=== PATIENT | female | born 1985 | race Caucasian/White ===

== ENCOUNTER 2019-01-07 14:44 | Emergency (ER) | payer SELFPAY ==
[~2019-01-07] VITALS: Ht 162.6 cm; Wt 75.0 kg
[2019-01-07 14:49] VITALS: BP 135/91
[2019-01-07] MEDS ORDERED: EFFEXOR 75M75 MG/TAB PO ×2 (15:02→15:38)
[2019-01-07 15:28] VITALS: PULSE 74; TEMP 98.1
[2019-01-07 15:35] LABS: ALBUMIN 4.5 gm/dL (3.5-5.0); BILIRUBIN UNCONJUGATED 0.3 mg/dL (0.0-1.1); BILIRUBIN,DIRECT 0.1 mg/dL (0.0-0.4); BILIRUBIN,TOTAL 0.4 mg/dL (0.0-1.0); TOTAL PROTEIN 8.5 gm/dL (6.4-8.2)
== END 2019-01-07 15:27 | disposition home or self-care (01) ==
LOC: COL.ER 14:44
PROVIDERS: Physician Assistant
DX: Z76.0 Encounter for issue of repeat prescription (principal); F32.9 Major depressive disorder, single episode, unspecified; F43.10 Post-traumatic stress disorder, unspecified; F41.9 Anxiety disorder, unspecified; F12.90 Cannabis use, unspecified, uncomplicated; F17.210 Nicotine dependence, cigarettes, uncomplicated; Z86.39 Personal history of other endocrine, nutritional and metabolic disease

== ENCOUNTER 2023-01-15 16:29 | Emergency (ER) | payer OTHER ==
[~2023-01-15] VITALS: Ht 162.6 cm; Wt 65.9 kg
[~2023-01-15 16:29] MED LIST: EFFEXOR 75M75 MG/TAB PO
[2023-01-15 16:42] VITALS: TEMP 98.2
[2023-01-15 17:42] LABS: COLLECTION METHOD CLEAN CATCH
[2023-01-15 17:45] LABS: SQUAMOUS EPITHELIAL 0-2 /hpf (0-10); URINE APPEARANCE Clear (CLEAR/HAZY); URINE BACTERIA None Seen /hpf (NONE SEEN); URINE BLOOD Negative (NEGATIVE); URINE COLOR Yellow (YELLOW); URINE GLUCOSE Negative (NEGATIVE); URINE KETONE Negative (NEGATIVE); URINE NITRATE Negative (NEGATIVE); URINE PROTEIN(semi-quant) Negative (NEGATIVE); URINE RBC 0-2 /hpf (0-2); URINE UROBILINOGEN 0.2 E.U/dL (0.2-1.0)
[2023-01-15 18:12] LABS: TRICYCLIC ANTIDEPRESS URINE NEGATIVE
[2023-01-15 18:14] LABS: BASO % 0.5 % (0.0-2.0); EOS # 0.1 K/mm3 (0.0-0.7); EOS % 0.9 % (0.0-4.0); GRAN # 5.1 K/mm3 (1.4-6.5); GRAN % 58.5 % (42.2-75.2); HEMATOCRIT 39.8 % (37.0-47.0); HEMOGLOBIN 14.5 g/dl (12.5-16.0); LYMPH # 2.8 K/mm3 (1.2-3.4); LYMPH % 32.3 % (20.0-51.0); MEAN CELL VOLUME 92 fl (80.0-100.0); MEAN CORPUSCULAR HEMOGLOBIN 33 pg (27-31); MEAN CORPUSCULAR HGB CONC 36 g/dl (33.0-37.0); MEAN PLATELET VOLUME 10.1 fl (7.4-10.4); MONO # 0.7 K/mm3 (0.1-0.6); MONO % 7.7 % (1.7-9.3); PLATELET COUNT 191 K/mm3 (130-400); RED BLOOD COUNT 4.34 M/mm3 (4.10-5.30); REDCELL DISTRIBUTION WIDTH-CV 12.2 % (11.5-14.5)
[2023-01-15 18:34] LABS: ALANINE AMINOTRANSFERASE 22 U/L (0-55); ALCOHOL(ethanol),MEDICAL 115 mg/dL (0-10); ALKALINE PHOSPHATASE 77 U/L (40-150); ANION GAP 12 mmol/L (7-16); AST,SGOT 29 U/L (5-34); BILIRUBIN,TOTAL 0.4 mg/dL (0.2-1.2); BLOOD UREA NITROGEN 3 mg/dL (7-19); CALCIUM 9.8 mg/dL (8.4-10.2); CARBON DIOXIDE 23 mmol/L (22-29); CHLORIDE 103 mmol/L (98-107); CREATININE, serum 0.71 mg/dL (0.57-1.11); GLUCOSE 85 mg/dL (70-99); POTASSIUM 3.7 mmol/L (3.5-4.5); SODIUM 138 mmol/L (136-145); TOTAL PROTEIN 7.6 gm/dL (6.2-8.1)
[2023-01-15 18:41] LABS: ACETAMINOPHEN < 1.0 ug/mL (10-30); SALICYLATE < 5.0 mg/dL (15.0-30.0)
[2023-01-15 19:39] VITALS: BP 99/56; PULSE 87
[2023-01-17] MEDS ORDERED: PHENERGAN 25 TA25 MG PO (21:00)
[2023-01-17] MEDS ORDERED: ZOFRAN ODT4 MG PO (21:00)
== END 2023-01-15 21:25 | disposition left against medical advice (07) ==
LOC: COL.ER 16:29
PROVIDERS: Physician Assistant
DX: O99.341 Other mental disorders complicating pregnancy, first trimester (principal); F41.9 Anxiety disorder, unspecified; O99.311 Alcohol use complicating pregnancy, first trimester; F10.10 Alcohol abuse, uncomplicated; F19.10 Other psychoactive substance abuse, uncomplicated; O99.331 Smoking (tobacco) complicating pregnancy, first trimester; F17.290 Nicotine dependence, other tobacco product, uncomplicated; Z3A.01 Less than 8 weeks gestation of pregnancy